=== PATIENT | female | born 1945 | race African-American/Black ===

== ENCOUNTER 2020-02-02 13:14 | Emergency (ER) | payer SELFPAY ==
[~2020-02-02] VITALS: Ht 157.5 cm; Wt 77.1 kg
[2020-02-02 13:19] VITALS: BP 130/95
--- NOTE | 2020-02-02 13:19 | NUR ---
ED Nurse Note: Pt brought in by ambulance due to ALOC. Per EMS, patient was wandering in the station and states she needs help. Patient did not state any physical complaint and denies any pain upon ED arrival. Bs check 371. Pt is AAO x2, follows commands with non labored breathing. Noted patient to have some grass on her clothes. No signs of wounds or injury at this time.
[2020-02-02] MEDS ORDERED: UNABLE TO OBTAIN (13:20)
--- NOTE | 2020-02-02 13:20 | NUR ---
ED Nurse Note: Police at the bed side.
--- NOTE | 2020-02-02 13:43 | NUR ---
ED Nurse Note: Collected blood and covid19 swab then sent. Patient taken down for CT and stable.
--- NOTE | 2020-02-02 13:56 | Emergency Room Report ---
History of Present Illness General Chief Complaint: Altered Level of Consciousness Source: Patient (Stacy Oh DO) Present Illness HPI This patient was brought in in by EMS. Per report, the patient had walked into the police department confused. The patient will start to give me a history and then becomes frustrated stating that that is how she wanted to say. She denies recent illness. She denies cough or congestion. She denies pain. She denies trauma. She denies headache. She denies fever chills. She denies nausea or vomiting. She has no other complaints. There were no family members available for any other history. (Stacy Oh DO) Allergies: Coded Allergies: No Known Allergies (Unverified , 02/02/20) COVID-19 Screening Contact w/high risk pt: No Experienced COVID-19 symptoms?: No COVID-19 Testing performed EVENT MANAGEMENT CONSULTANT: No (Stacy Oh DO) Patient History Past Medical History: see triage record, DM Social History: Denies: smoking, alcohol use, drug use Reviewed Nursing Documentation: PMH: Agreed; PSxH: Agreed (Stacy Oh DO) Nursing Documentation-PMH Past Medical History: No History, Except For Hx Diabetes: Yes (Stacy Oh DO) Review of Systems All Other Systems: negative except mentioned in HPI (Stacy Oh DO) Physical Exam Vital Signs Date Time Temp Pulse Resp B/P (MAP) Pulse Ox O2 Delivery O2 Flow Rate FiO2 02/02/20 13:09 98.8 102 18 152/83 (106) 98 Room Air Sp02 EP Interpretation: reviewed, normal General Appearance: no apparent distress, alert, GCS 15, non-toxic Head: normocephalic, atraumatic Eyes: bilateral eye normal inspection, bilateral eye PERRL ENT: hearing grossly normal, normal pharynx, no angioedema, normal voice Neck: full range of motion, supple/symm/no masses Respiratory: chest non-tender, lungs clear, normal breath sounds, no respiratory distress, no retraction, no accessory muscle use, speaking full sentences Cardiovascular #1: regular rate, rhythm, no edema Gastrointestinal: normal bowel sounds, non tender, soft, non-distended, no guarding, no rebound Rectal: deferred Musculoskeletal: back normal, normal range of motion, non-tender Neurologic: alert, motor strength/tone normal, responsive, speech normal, other - Pt will start to answer my question, then become frustrated stating "that's not what I wanted to say." Psychiatric: judgement/insight normal, memory normal, mood/affect normal, no suicidal/homicidal ideation Skin: no rash, normal color (Stacy Oh DO) Medical Decision Making Diagnostic Impression: Primary Impression: AMS (altered mental status) Qualified Codes: R41.82 - Altered mental status, unspecified Additional Impressions: Confused Hyperglycemia Elevated lactic acid level ER Course This patient presented confused. I do not have any knowledge of the patient's baseline. There was no family or friends available to me for baseline on this patient. Therefore, I differential diagnosis included first and foremost CVA. However, I do not have an onset. Therefore, she not meet criteria for TPA. Further differential includes infection, electrolyte abnormality, acute coronary syndrome to name a few. The patient immediately underwent CT of the head which showed no obvious CVA. The patient was found hyperglycemic but has diabetes. She was given metformin and IV fluids. Later in the ED course, the patient's son arrived and stated that this is the patient's baseline. He states that she had gone on a walk around the block and had apparently gotten lost. He states that she has dementia and currently is undergoing an evaluation by her primary physician and geriatric psych. The dementia has worsened over the past 6 months and he and her other son are trying to manage her dementia. His interaction with her and he states that she is normal for her current dementia. He does note that she does not take her medications regularly. I did discuss with him that given her dementia, another person would likely need to manage her daily medications to ensure that she takes them. He did note that he sees that he may need to get care in the home to watch her more carefully as he and his brother work and cannot monitor her as closely as she needs. [place] [employer] was bedside and reporting on the situation. It appears that this patient is at baseline and got lost on a walk. No further emergency department intervention indicated at this time. The patient and her son were given close return precautions and follow-up instructions. This patient was evaluated in the context of the global COVID-19 pandemic, which necessitated consideration that the patient might be at risk for infection with the [id number] virus that causes COVID-19. Institutional protocols and algorithms that pertain to the evaluation of patients at risk for COVID-19 and the state of rapid change based on information released by multiple regulatory bodies including the CDC and federal and state organizations. These policies and algorithms were followed during the patient's care in the ED. Laboratory Tests Test 02/02/20 13:26 02/02/20 13:40 02/02/20 15:00 02/02/20 16:10 POC Whole Blood Glucose 371 MG/DL (74-106) H White Blood Count 5.7 K/UL (4.8-10.8) Red Blood Count 4.63 M/UL (4.20-5.40) Hemoglobin 13.7 G/DL (12.0-16.0) Hematocrit 41.0 % (37.0-47.0) Mean Corpuscular Volume 89 FL (80-99) Mean Corpuscular Hemoglobin 29.5 PG (27.0-31.0) Mean Corpuscular Hemoglobin Concent 33.3 G/DL (32.0-36.0) Red Cell Distribution Width 11.4 % (11.6-14.8) L Platelet Count 172 K/UL (150-450) Mean Platelet Volume 7.0 FL (6.5-10.1) Neutrophils (%) (Auto) 78.6 % (45.0-75.0) H Lymphocytes (%) (Auto) 14.9 % (20.0-45.0) L Monocytes (%) (Auto) 5.3 % (1.0-10.0) Eosinophils (%) (Auto) 0.3 % (0.0-3.0) Basophils (%) (Auto) 1.0 % (0.0-2.0) Prothrombin Time 10.8 SEC (9.30-11.50) Prothrombin Time INR 1.0 (0.9-1.1) Activated Partial Thromboplast Time 23 SEC (23-33) Sodium Level 144 MMOL/L (136-145) Potassium Level 3.7 MMOL/L (3.5-5.1) Chloride Level 109 MMOL/L (98-107) H Carbon Dioxide Level 25 MMOL/L (21-32) Anion Gap 10 mmol/L (5-15) Blood Urea Nitrogen 31 mg/dL (7-18) H Creatinine 1.5 MG/DL (0.55-1.30) H Estimated Glomerular Filtration Rate 34.1 mL/min (>60) Glucose Level 396 MG/DL (74-106) H Lactic Acid Level 2.20 mmol/L (0.4-2.0) H 1.50 mmol/L (0.66-2.22) Calcium Level 9.5 MG/DL (8.5-10.1) Total Bilirubin 0.3 MG/DL (0.2-1.0) Aspartate Amino Transferase (AST) 8 U/L (15-37) L Alanine Aminotransferase (ALT) 26 U/L (12-78) Alkaline Phosphatase 99 U/L (46-116) Total Creatine Kinase 50 U/L (26-308) Creatine Kinase MB 1.8 NG/ML (0.0-3.6) Creatine Kinase MB Relative Index 3.6 Troponin I 0.000 ng/mL (0.000-0.056) Total Protein 6.8 G/DL (6.4-8.2) Albumin 3.4 G/DL (3.4-5.0) Globulin 3.4 g/dL Albumin/Globulin Ratio 1.0 (1.0-2.7) Thyroid Stimulating Hormone (TSH) 0.707 uiU/mL (0.358-3.740) Serum Alcohol < 3 mg/dL Urine Color Pale yellow Urine Appearance Clear Urine pH 5 (4.5-8.0) Urine Specific [place] 1.015 (1.005-1.035) Urine Protein Negative (NEGATIVE) Urine Glucose (UA) 4+ (NEGATIVE) H Urine Ketones Negative (NEGATIVE) Urine Blood Negative (NEGATIVE) Urine Nitrite Negative (NEGATIVE) Urine Bilirubin Negative (NEGATIVE) Urine Urobilinogen Normal MG/DL (0.0-1.0) Urine Leukocyte Esterase Negative (NEGATIVE) Urine Opiates Screen Negative (NEGATIVE) Urine Barbiturates Screen Negative (NEGATIVE) Phencyclidine (PCP) Screen Negative (NEGATIVE) Urine Amphetamines Screen Negative (NEGATIVE) Urine Benzodiazepines Screen Negative (NEGATIVE) Urine Cocaine Screen Negative (NEGATIVE) Urine Marijuana (THC) Screen Negative (NEGATIVE) Microbiology Date/Time Source Procedure Growth Status 02/02/20 13:40 Nasopharynx SARS-CoV-2 RdRp Gene Assay - Final Complete Laboratory Tests Test 02/02/20 13:26 POC Whole Blood Glucose 371 MG/DL (74-106) H (Stacy Oh DO) ER Course Please see above note. Patient treated with IV hydration. Minimally elevated lactic acid. Repeat normal. Patient mentation improved. Blood glucose 226 after IV hydration and metformin. Patient with baseline mental status according to son. Patient stable for outpatient observation and treatment. Plan to discharge to son's care as patient with dementia. Laboratory Tests Test 02/02/20 13:26 02/02/20 13:40 02/02/20 15:00 02/02/20 16:10 POC Whole Blood Glucose 371 MG/DL (74-106) H White Blood Count 5.7 K/UL (4.8-10.8) Red Blood Count 4.63 M/UL (4.20-5.40) Hemoglobin 13.7 G/DL (12.0-16.0) Hematocrit 41.0 % (37.0-47.0) Mean Corpuscular Volume 89 FL (80-99) Mean Corpuscular Hemoglobin 29.5 PG (27.0-31.0) Mean Corpuscular Hemoglobin Concent 33.3 G/DL (32.0-36.0) Red Cell Distribution Width 11.4 % (11.6-14.8) L Platelet Count 172 K/UL (150-450) Mean Platelet Volume 7.0 FL (6.5-10.1) Neutrophils (%) (Auto) 78.6 % (45.0-75.0) H Lymphocytes (%) (Auto) 14.9 % (20.0-45.0) L Monocytes (%) (Auto) 5.3 % (1.0-10.0) Eosinophils (%) (Auto) 0.3 % (0.0-3.0) Basophils (%) (Auto) 1.0 % (0.0-2.0) Prothrombin Time 10.8 SEC (9.30-11.50) Prothrombin Time INR 1.0 (0.9-1.1) Activated Partial Thromboplast Time 23 SEC (23-33) Sodium Level 144 MMOL/L (136-145) Potassium Level 3.7 MMOL/L (3.5-5.1) Chloride Level 109 MMOL/L (98-107) H Carbon Dioxide Level 25 MMOL/L (21-32) Anion Gap 10 mmol/L (5-15) Blood Urea Nitrogen 31 mg/dL (7-18) H Creatinine 1.5 MG/DL (0.55-1.30) H Estimated Glomerular Filtration Rate 34.1 mL/min (>60) Glucose Level 396 MG/DL (74-106) H Lactic Acid Level 2.20 mmol/L (0.4-2.0) H 1.50 mmol/L (0.66-2.22) Calcium Level 9.5 MG/DL (8.5-10.1) Total Bilirubin 0.3 MG/DL (0.2-1.0) Aspartate Amino Transferase (AST) 8 U/L (15-37) L Alanine Aminotransferase (ALT) 26 U/L (12-78) Alkaline Phosphatase 99 U/L (46-116) Total Creatine Kinase 50 U/L (26-308) Creatine Kinase MB 1.8 NG/ML (0.0-3.6) Creatine Kinase MB Relative Index 3.6 Troponin I 0.000 ng/mL (0.000-0.056) Total Protein 6.8 G/DL (6.4-8.2) Albumin 3.4 G/DL (3.4-5.0) Globulin 3.4 g/dL Albumin/Globulin Ratio 1.0 (1.0-2.7) Thyroid Stimulating Hormone (TSH) 0.707 uiU/mL (0.358-3.740) Serum Alcohol < 3 mg/dL Urine Color Pale yellow Urine Appearance Clear Urine pH 5 (4.5-8.0) Urine Specific Bend 1.015 (1.005-1.035) Urine Protein Negative (NEGATIVE) Urine Glucose (UA) 4+ (NEGATIVE) H Urine Ketones Negative (NEGATIVE) Urine Blood Negative (NEGATIVE) Urine Nitrite Negative (NEGATIVE) Urine Bilirubin Negative (NEGATIVE) Urine Urobilinogen Normal MG/DL (0.0-1.0) Urine Leukocyte Esterase Negative (NEGATIVE) Urine Opiates Screen Negative (NEGATIVE) Urine Barbiturates Screen Negative (NEGATIVE) Phencyclidine (PCP) Screen Negative (NEGATIVE) Urine Amphetamines Screen Negative (NEGATIVE) Urine Benzodiazepines Screen Negative (NEGATIVE) Urine Cocaine Screen Negative (NEGATIVE) Urine Marijuana (THC) Screen Negative (NEGATIVE) Microbiology Date/Time Source Procedure Growth Status 02/02/20 13:40 Nasopharynx SARS-CoV-2 RdRp Gene Assay - Final Complete (Brannon Solis MD) EKG Diagnostic Results Rate: normal Rhythm: NSR ST Segments: no acute changes (Stacy Oh DO) Rhythm Strip Diag. Results EP Interpretation: yes Rate: 80's Rhythm: NSR, no PVC's, no ectopy (Stacy Oh DO) EP Interpretation: yes Rhythm: NSR, no PVC's, no ectopy (Brannon Solis MD) CT/MRI/US Diagnostic Results CT/MRI/US Diagnostic Results : Imaging Test Ordered: CT head Impression No acute findings. Specifically no intracranial bleed, mass effect or edema. See official report. (Stacy Oh DO) Last Vital Signs Date Time Temp Pulse Resp B/P (MAP) Pulse Ox O2 Delivery O2 Flow Rate FiO2 02/02/20 13:09 98.8 102 18 152/83 (106) 98 Room Air Status: improved (Stacy Oh DO) Last Vital Signs Date Time Temp Pulse Resp B/P (MAP) Pulse Ox O2 Delivery O2 Flow Rate FiO2 02/02/20 17:55 98.0 85 18 147/97 98 02/02/20 13:19 Room Air Status: improved (Brannon Solis MD) Disposition: HOME, SELF-CARE Condition: Improved Stacy Oh DO Feb 02, 2020 13:56 Brannon Solis MD Feb 02, 2020 17:14
--- NOTE | 2020-02-02 13:58 | NUR ---
ED Nurse Note: Patient came back from CT and stable. patient still confused.
[2020-02-02 14:11] LABS: ANION GAP 10 mmol/L (5-15); BLOOD UREA NITROGEN 31 mg/dL (7-18); CALCIUM 9.5 MG/DL (8.5-10.1); CARBON DIOXIDE 25 MMOL/L (21-32); CHLORIDE 109 MMOL/L (98-107); CREATININE 1.5 MG/DL (0.55-1.30); POTASSIUM 3.7 MMOL/L (3.5-5.1); SODIUM 144 MMOL/L (136-145)
--- NOTE | 2020-02-02 14:11 | Diagnostic Imaging Report ---
EXAM: CT CT Head no Contrast INDICATION: Altered mental status. TECHNIQUE: Axial images of the brain were obtained with subsequent sagittal and coronal reformats. All CT scans at this facility are performed using dose modulation techniques as appropriate to a performed exam including the following: automated exposure control with adjustment of the mA and/or kV according to patient size. COMPARISON STUDY: None RADIATION DOSE: CTDIvol: 53.4 mGy DLP: 1018.8 mGy-cm Dose information generated by the CT scanner is available in PACS. FINDINGS: There is age related senescent changes with ventricular and sulcal prominence. White matter micro-ischemic changes noted. There is no acute large territory cortical infarct, hemorrhage, mass effect or shift. Ventricles and cisterns as well as brainstem and posterior fossa appear unremarkable. The sellar region is normal. Sinuses, mastoid air cells and bony calvarium appear intact. IMPRESSION: AGE RELATED SENESCENT CHANGES. NO ACUTE INTRACRANIAL ABNORMALITY.
[2020-02-02 14:20] LABS: EOSINOPHILS % (AUTO) 0.3 % (0.0-3.0); HEMOGLOBIN 13.7 G/DL (12.0-16.0); LYMPHOCYTES % (AUTO) 14.9 % (20.0-45.0); MEAN CORPUSCULAR VOLUME 89 FL (80-99); MONOCYTES % (AUTO) 5.3 % (1.0-10.0); NEUTROPHILS % (AUTO) 78.6 % (45.0-75.0); PLATELET COUNT 172 K/UL (150-450); RED BLOOD COUNT 4.63 M/UL (4.20-5.40); RED CELL DISTRIBUTION WIDTH 11.4 % (11.6-14.8); WHITE BLOOD COUNT 5.7 K/UL (4.8-10.8)
--- NOTE | 2020-02-02 14:21 | Diagnostic Imaging Report ---
Procedure: XRAY Chest 1v Reason for study: Chest pain. Comparison films: None. FINDINGS: A single one view chest is obtained. Vascularity is normal. The lung dwyer are clear bilaterally. Cardiac and mediastinal silhouette are within normal limits. CP angles are sharp. The bony thorax appear unremarkable. IMPRESSION: NO ACUTE CARDIOPULMONARY DISEASE.
[2020-02-02 14:23] LABS: ALANINE AMINOTRANSFERASE 26 U/L (12-78); ALBUMIN 3.4 G/DL (3.4-5.0); ALKALINE PHOSPHATASE 99 U/L (46-116); ASPARTATE AMINO TRANSFERASE 8 U/L (15-37); BILIRUBIN,TOTAL 0.3 MG/DL (0.2-1.0); CKMB 1.8 NG/ML (0.0-3.6); CREATINE KINASE 50 U/L (26-308)
--- NOTE | 2020-02-02 14:28 | NUR ---
ED Nurse Note: caroline, son-next of kin-
[2020-02-02] MEDS ORDERED: metFORMIN 500mg tab ORAL ONE (14:30)
[2020-02-02 15:11] LABS: APPEARANCE,URINE CLEAR; BILIRUBIN, URINE NEGATIVE (NEGATIVE); COLOR,URINE PALE YELLOW; GLUCOSE, URINE (UA) 4+ (NEGATIVE); KETONES,URINE NEGATIVE (NEGATIVE); LEUKOCYTE ESTERASE ,URINE NEGATIVE (NEGATIVE); NITRITE,URINE NEGATIVE (NEGATIVE); PH,URINE 5 (4.5-8.0); PROTEIN,URINE NEGATIVE (NEGATIVE); UROBILINOGEN,URINE NORMAL MG/DL (0.0-1.0)
--- NOTE | 2020-02-02 15:35 | NUR ---
HAND-OFF: Report given to adarsh RN.
--- NOTE | 2020-02-02 15:36 | NUR ---
ED Nurse Note: Report received from SYBIL Jameson RN
--- NOTE | 2020-02-02 15:45 | NUR ---
ED Nurse Note: Repeat lactic sent
--- NOTE | 2020-02-02 17:53 | NUR ---
ED Nurse Note: Patient refused to be picked up by her son at the ED to be brought home. Patient confirmed home address on file
[2020-02-02 17:55] VITALS: BP 147/97
--- NOTE | 2020-02-02 17:55 | NUR ---
ER DISCHARGE NOTE: Patient is cleared to be discharged per ERMD, pt is aox4, on room air, with stable vital signs. pt was given dc and prescription instructions, pt was able to verbalize understanding, pt id band and iv site removed without complications. pt is able to ambulate with steady gait. pt took all belongings.
--- NOTE | 2020-02-03 16:30 | Cardiology Report ---
APPROVED REPORT EKG Measurement Heart [id number] <Conclusion> Normal sinus rhythm Cannot rule out Anterior infarct, age undetermined Abnormal ECG
== END 2020-02-02 17:57 | disposition home or self-care (01) ==
LOC: EDBD 13:14 → EMR 14:22 → EDBD 14:22 → EMR 17:57
DX: R41.82 Altered mental status, unspecified (principal); E11.65 Type 2 diabetes mellitus with hyperglycemia; R79.89 Other specified abnormal findings of blood chemistry; R41.0 Disorientation, unspecified; F03.90 Unspecified dementia, unspecified severity, without behavioral disturbance, psychotic disturbance, mood disturbance, and anxiety
CPT/HCPCS: 36415; 70450; 71045; 80053; 80307; 81003; 82550; 82553; 82962; 83605; 84443; 84484; 85025; 85610; 85730; 87040; 93005; 96360; 99284; G0480; J7030; U0002

== ENCOUNTER 2020-02-02 21:22 | Emergency (ER) | payer MEDICARE ==
[~2020-02-02] VITALS: Ht 170.2 cm; Wt 81.6 kg
[~2020-02-02 21:22] MED LIST: UNABLE TO OBTAIN
--- NOTE | 2020-02-02 21:40 | NUR ---
ED Nurse Note: Patient brought in by ambulance off of the street on [facility]. [place] called [employer] for garbage pick up man. Patient denies chest pain, /SOB, denies injury. Patient presents in stable condition . Patent's family member contacted upon rearrival.
[2020-02-02 21:52] VITALS: BP 134/86
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
--- NOTE | 2020-02-02 22:43 | NUR ---
ER DISCHARGE NOTE: Patient is cleared to be discharged per ERMD, pt is aox4, on room air, with stable vital signs. pt was given dc and prescription instructions, pt was able to verbalize understanding, pt id band removed. pt is able to ambulate with steady gait. pt took all belongings. patient was picked up by Morteza (son) in the waiting room.
[2020-02-02 23:45] VITALS: BP 134/84
== END 2020-02-02 23:45 | disposition home or self-care (01) ==
LOC: EDBD 21:22 → EMR 21:41
DX: R41.82 Altered mental status, unspecified (principal); E11.65 Type 2 diabetes mellitus with hyperglycemia; F03.90 Unspecified dementia, unspecified severity, without behavioral disturbance, psychotic disturbance, mood disturbance, and anxiety
CPT/HCPCS: 99281

== ENCOUNTER 2020-02-06 12:59 | Emergency (ER) | payer MEDICARE ==
[~2020-02-06] VITALS: Ht 167.6 cm; Wt 72.6 kg
[2020-02-06 13:00] VITALS: BP 119/66
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
--- NOTE | 2020-02-06 13:33 | Emergency Room Report ---
History of Present Illness General Chief Complaint: Altered Level of Consciousness Source: EMS Present Illness HPI Patient is brought in by EMS. She was found slightly unsteady on her feet but also disoriented. The patient denied any somatic complaints to paramedics. Patient has a history of diabetes. Her blood sugar was 380 in the field. The patient is well-known to me as I performed two evaluations on her on February 01. She has a history of dementia. Her son cares for her and she escapes on her own. She was seen twice on February 01 here. The first time her blood sugar was elevated and responded to IV fluids and Metformin. In addition to that she had a lactic acidosis that responded to fluids. Patient denies all and review of systems however she has a history of dementia. Allergies: Coded Allergies: No Known Allergies (Unverified , 02/02/20) COVID-19 Screening Contact w/high risk pt: No Experienced COVID-19 symptoms?: No COVID-19 Testing performed DIRECTOR [employer]ETING: No Patient History Limited by: medical condition Past Medical History: see triage record, old chart reviewed Social History: Denies: smoking, alcohol use, drug use Social History Narrative Born in [facility] Reviewed Nursing Documentation: PMH: Agreed; PSxH: Agreed Nursing Documentation-PMH Hx Hypertension: Yes Hx Diabetes: Yes Hx Neurological Problems: Yes - dementia Review of Systems All Other Systems: limited Physical Exam Vital Signs Date Time Temp Pulse Resp B/P (MAP) Pulse Ox O2 Delivery O2 Flow Rate FiO2 02/06/20 12:57 98.1 82 16 138/72 (94) 98 Room Air Sp02 EP Interpretation: reviewed, normal General Appearance: well appearing, no apparent distress, alert Head: normocephalic Eyes: bilateral eye normal inspection, bilateral eye PERRL, bilateral eye EOMI ENT: moist mucus membranes Neck: supple Respiratory: lungs clear, normal breath sounds Cardiovascular #1: regular rate, rhythm Cardiovascular #2: 2+ radial (R) Gastrointestinal: normal inspection, normal bowel sounds, non tender, no mass, non-distended Musculoskeletal: back normal, normal range of motion, gait/station normal Neurologic: alert, motor strength/tone normal, oriented - To name and place, DTRs symmetric, sensory intact, cerebellar normal, speech normal Psychiatric: mood/affect normal - Slightly anxious Skin: no rash, warm/dry Medical Decision Making Diagnostic Impression: Primary Impression: Dementia Qualified Codes: F03.90 - Unspecified dementia without behavioral disturbance Additional Impressions: Hyperglycemia Renal insufficiency ER Course Patient known to the department with dementia presents "feeling lost". Differential includes electrolyte of normality, exacerbation of dementia, occult infection, amongst others. Patient evaluated with EKG and labs. Patient treated with IV hydration. The patient has hyperglycemia by Accu-Chek. Consideration of giving metformin. Patient placed on a court monitor. Normal sinus rhythm nonspecific ST-T wave changes rate 70. CMP remarkable for elevated blood glucose. Bicarb is normal. Mild renal insufficiency. Patient improved with IV hydration. Given a dose of metformin. Patient's son came to the emergency department to retrieve his mom. She was given and identifying band with his phone number. Discussed Alzheimer's support groups. He has an appointment with her doctor on Saturday. No emergency at this time. Patient stable for outpatient observation and treatment. Laboratory Tests Test 02/06/20 13:10 02/06/20 15:20 White Blood Count 5.5 K/UL (4.8-10.8) Red Blood Count 4.68 M/UL (4.20-5.40) Hemoglobin 13.8 G/DL (12.0-16.0) Hematocrit 40.9 % (37.0-47.0) Mean Corpuscular Volume 87 FL (80-99) Mean Corpuscular Hemoglobin 29.6 PG (27.0-31.0) Mean Corpuscular Hemoglobin Concent 33.9 G/DL (32.0-36.0) Red Cell Distribution Width 11.5 % (11.6-14.8) L Platelet Count 162 K/UL (150-450) Mean Platelet Volume 8.5 FL (6.5-10.1) Neutrophils (%) (Auto) 79.6 % (45.0-75.0) H Lymphocytes (%) (Auto) 13.3 % (20.0-45.0) L Monocytes (%) (Auto) 5.2 % (1.0-10.0) Eosinophils (%) (Auto) 0.8 % (0.0-3.0) Basophils (%) (Auto) 1.1 % (0.0-2.0) Sodium Level 145 MMOL/L (136-145) Potassium Level 3.8 MMOL/L (3.5-5.1) Chloride Level 109 MMOL/L (98-107) H Carbon Dioxide Level 26 MMOL/L (21-32) Anion Gap 10 mmol/L (5-15) Blood Urea Nitrogen 24 mg/dL (7-18) H Creatinine 1.5 MG/DL (0.55-1.30) H Estimated Glomerular Filtration Rate 41.3 mL/min (>60) Glucose Level 385 MG/DL (74-106) H Calcium Level 9.4 MG/DL (8.5-10.1) Total Bilirubin 0.4 MG/DL (0.2-1.0) Aspartate Amino Transferase (AST) 13 U/L (15-37) L Alanine Aminotransferase (ALT) 22 U/L (12-78) Alkaline Phosphatase 102 U/L (46-116) Total Creatine Kinase 60 U/L (26-308) Troponin I 0.000 ng/mL (0.000-0.056) Total Protein 6.7 G/DL (6.4-8.2) Albumin 3.3 G/DL (3.4-5.0) L Globulin 3.4 g/dL Albumin/Globulin Ratio 1.0 (1.0-2.7) Salicylates Level < 0.2 ug/mL (2.8-20) L Acetaminophen Level < 2 MCG/ML (10-30) L Serum Alcohol < 3 mg/dL Urine Color Pale yellow Urine Appearance Clear Urine pH 6 (4.5-8.0) Urine Specific [place] 1.010 (1.005-1.035) Urine Protein Negative (NEGATIVE) Urine Glucose (UA) 4+ (NEGATIVE) H Urine Ketones Negative (NEGATIVE) Urine Blood Negative (NEGATIVE) Urine Nitrite Negative (NEGATIVE) Urine Bilirubin Negative (NEGATIVE) Urine Urobilinogen Normal MG/DL (0.0-1.0) Urine Leukocyte Esterase Negative (NEGATIVE) Urine Opiates Screen Negative (NEGATIVE) Urine Barbiturates Screen Negative (NEGATIVE) Phencyclidine (PCP) Screen Negative (NEGATIVE) Urine Amphetamines Screen Negative (NEGATIVE) Urine Benzodiazepines Screen Negative (NEGATIVE) Urine Cocaine Screen Negative (NEGATIVE) Urine Marijuana (THC) Screen Negative (NEGATIVE) EKG Diagnostic Results Rate: normal Rhythm: NSR ST Segments: no acute changes - Nonspecific ST-T wave changes Rhythm Strip Diag. Results EP Interpretation: yes Rhythm: NSR, no PVC's, no ectopy Last Vital Signs Date Time Temp Pulse Resp B/P (MAP) Pulse Ox O2 Delivery O2 Flow Rate FiO2 02/06/20 15:38 98.4 81 19 156/87 100 Room Air Status: improved Disposition: HOME, SELF-CARE Condition: Improved Referrals: [facility] (PCP) Brannon Solis MD Feb 06, 2020 13:33
[2020-02-06 13:37] LABS: ANION GAP 10 mmol/L (5-15); BLOOD UREA NITROGEN 24 mg/dL (7-18); CALCIUM 9.4 MG/DL (8.5-10.1); CARBON DIOXIDE 26 MMOL/L (21-32); CHLORIDE 109 MMOL/L (98-107); CREATININE 1.5 MG/DL (0.55-1.30); POTASSIUM 3.8 MMOL/L (3.5-5.1); SODIUM 145 MMOL/L (136-145)
[2020-02-06 13:44] LABS: ALANINE AMINOTRANSFERASE 22 U/L (12-78); ALBUMIN 3.3 G/DL (3.4-5.0); ALKALINE PHOSPHATASE 102 U/L (46-116); ASPARTATE AMINO TRANSFERASE 13 U/L (15-37); BILIRUBIN,TOTAL 0.4 MG/DL (0.2-1.0); CREATINE KINASE 60 U/L (26-308)
[2020-02-06 14:26] LABS: BASOPHILS % (AUTO) 1.1 % (0.0-2.0); EOSINOPHILS % (AUTO) 0.8 % (0.0-3.0); HEMATOCRIT 40.9 % (37.0-47.0); HEMOGLOBIN 13.8 G/DL (12.0-16.0); LYMPHOCYTES % (AUTO) 13.3 % (20.0-45.0); MEAN CORPUSCULAR VOLUME 87 FL (80-99); MONOCYTES % (AUTO) 5.2 % (1.0-10.0); NEUTROPHILS % (AUTO) 79.6 % (45.0-75.0); PLATELET COUNT 162 K/UL (150-450); RED BLOOD COUNT 4.68 M/UL (4.20-5.40); RED CELL DISTRIBUTION WIDTH 11.5 % (11.6-14.8); WHITE BLOOD COUNT 5.5 K/UL (4.8-10.8)
[2020-02-06] MEDS ORDERED: metFORMIN 500mg tab ORAL STA (14:26)
--- NOTE | 2020-02-06 15:22 | NUR ---
ED Nurse Note: Urine collected via I&O pt tolerated well. urine sent to lab
--- NOTE | 2020-02-06 15:35 | NUR ---
ED Nurse Note: Son caroline at bedside speaking with KAR
[2020-02-06 15:36] LABS: APPEARANCE,URINE CLEAR; BILIRUBIN, URINE NEGATIVE (NEGATIVE); COLOR,URINE PALE YELLOW; GLUCOSE, URINE (UA) 4+ (NEGATIVE); KETONES,URINE NEGATIVE (NEGATIVE); LEUKOCYTE ESTERASE ,URINE NEGATIVE (NEGATIVE); NITRITE,URINE NEGATIVE (NEGATIVE); PH,URINE 6 (4.5-8.0); PROTEIN,URINE NEGATIVE (NEGATIVE); UROBILINOGEN,URINE NORMAL MG/DL (0.0-1.0)
[2020-02-06 15:38] VITALS: BP 156/87
== END 2020-02-06 15:39 | disposition home or self-care (01) ==
LOC: EDBD 12:59 → EMR 13:22
DX: F03.90 Unspecified dementia, unspecified severity, without behavioral disturbance, psychotic disturbance, mood disturbance, and anxiety (principal); E11.65 Type 2 diabetes mellitus with hyperglycemia; N28.9 Disorder of kidney and ureter, unspecified; I10 Essential (primary) hypertension
CPT/HCPCS: 36415; 80053; 80307; 81003; 82550; 84484; 85025; 93005; 96360; 99284; G0480; J7030